=== PATIENT | male | born 2000 ===

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

== ENCOUNTER 2018-08-04 10:06 | Emergency (ER) | payer OTHER, MEDICAID | END 2018-08-04 14:15 | disposition short-term general hospital (02) | LOC: C.ER 10:06 ==